=== PATIENT | female | born 1940 | race Caucasian/White ===

== ENCOUNTER 2020-05-05 22:37 | Emergency (ER) | payer OTHER ==
[~2020-05-05] VITALS: Ht 154.9 cm; Wt 68.9 kg
[~2020-05-05 22:37] MED LIST: ASPI-1153 PO; DILT120C89 PO; SIMV20TA2 PO
[2020-05-05 22:44] VITALS: BP_SYST 150
[2020-05-05 23:16] LABS: BILIRUBIN,URINE NEGATIVE (NEGATIVE); BLOOD, URINE 3+ (NEGATIVE); COLOR,URINE YELLOW (YELLOW); GLUCOSE,URINE NEGATIVE (NEGATIVE); KETONES,URINE NEGATIVE (NEGATIVE); LEUKOCYTE ESTERASE ,URINE 3+ (NEGATIVE); NITRITE, URINE NEGATIVE (NEGATIVE); PROTEIN URINE NEGATIVE (NEGATIVE); UROBILINOGEN,URINE 0.2 (0.2-1.0)
[2020-05-05 23:17] LABS: CLARITY/URINE CLOUDY (CLEAR)
[2020-05-05 23:26] LABS: BACTERIA,URINE MODERATE /HPF (None Seen); RBC,URINE 20-50 /HPF (0-3); WBC,URINE 20-50 /HPF (0-3)
[2020-05-06] MEDS ORDERED: CEPHALEXIN 500 MG CAPSULE PO ONE (00:30)
[2020-05-06] MEDS ORDERED: methylPREDNISolone SOD SUCC/PF 62.5 MG/ML VIAL IM ONE (00:30)
[2020-05-06 00:43] VITALS: BP_SYST 136
== END 2020-05-06 00:43 | disposition home or self-care (01) ==
LOC: SED 22:37
DX: T78.1XXA Other adverse food reactions, not elsewhere classified, initial encounter (principal); N39.0 Urinary tract infection, site not specified; I48.91 Unspecified atrial fibrillation; E07.9 Disorder of thyroid, unspecified; Z79.899 Other long term (current) drug therapy; Z79.82 Long term (current) use of aspirin; X58.XXXA Exposure to other specified factors, initial encounter
CPT/HCPCS: 81000; 87086; 96372; 99283; J2930

== ENCOUNTER 2020-10-27 11:32 | Emergency (ER) | payer OTHER ==
[~2020-10-27] VITALS: Ht 157.5 cm; Wt 68.0 kg
[~2020-10-27 11:32] MED LIST changes: -ASPI-1153 PO; +ASPI-1393 PO
[2020-10-27 11:46] VITALS: BP_SYST 143
[2020-10-27] MEDS ORDERED: OMEP-268 PO (12:00)
[2020-10-27] MEDS ORDERED: BACL10TA PO (12:00)
[2020-10-27] MEDS ORDERED: LEVO25TA2 PO (12:00)
[2020-10-27] MEDS ORDERED: TRIA1TAB96 PO (12:00)
[2020-10-27] MEDS ORDERED: ROSU20TA32 PO (12:00)
[2020-10-27 12:52] LABS: BASOPHILS # (AUTO) 0.1 K/uL (0.0-0.2); BASOPHILS % (AUTO) 0.8 % (0.0-2.0); EOSINOPHILS % (AUTO) 0.4 % (0.0-4.0); HEMATOCRIT 40.9 % (36-48); HEMOGLOBIN 14.1 g/dL (12.0-16.0); LYMPHOCYTES # (AUTO) 1.5 K/uL (1.0-5.5); LYMPHOCYTES % (AUTO) 18.9 % (20.5-51.5); MEAN CORPUSCULAR HEMOGLOBIN 32 pg (27-31); MEAN CORPUSCULAR HGB CONC 35 % (32-36); MEAN CORPUSCULAR VOLUME 94 fL (79.0-98.0); MONOCYTES # (AUTO) 0.4 K/uL (0.0-1.0); MONOCYTES % (AUTO) 5.2 % (1.7-9.3); NEUTROPHILS # (AUTO) 5.9 K/uL (1.8-7.7); NEUTROPHILS % (AUTO) 74.7 % (40.0-70.0); PLATELET COUNT (AUTO) 233 K/uL (130-430); RED BLOOD CELL COUNT(AUTO) 4.37 MIL/uL (4.2-6.2); RED CELL DISTRIBUTION WIDTH 13.2 % (9.0-15.0); WHITE BLOOD COUNT (AUTO) 7.9 K/uL (4.8-10.8)
[2020-10-27 12:58] LABS: ANION GAP 11 (5-15); CALCIUM 9.3 mg/dL (8.4-11.0); CHLORIDE 99 mmol/L (98-107); CREATININE 1.47 mg/dL (0.55-1.30); GLUCOSE 96 mg/dL (70-99); POTASSIUM 3.5 mmol/L (3.5-5.1); SODIUM SERUM 137 mmol/L (136-145); UREA NITROGEN, BLOOD 22 mg/dL (8-21)
[2020-10-27 13:04] LABS: ACETAMINOPHEN < 1 ug/mL (1-30); ALANINE AMINOTRANSFERASE 31 U/L (12-78); ALBUMIN 4.3 g/dL (3.4-4.8); ALCOHOL, BLOOD < 3 mg/dL (<10); ASPARTATE AMINOTRANSFERASE 31 U/L (10-37); TOTAL BILIRUBIN 1.1 mg/dL (0.0-1.0)
[2020-10-27 14:25] LABS: BILIRUBIN,URINE NEGATIVE (NEGATIVE); CLARITY/URINE CLEAR (CLEAR); COLOR,URINE YELLOW (YELLOW); GLUCOSE,URINE NEGATIVE (NEGATIVE); KETONES,URINE NEGATIVE (NEGATIVE); LEUKOCYTE ESTERASE ,URINE NEGATIVE (NEGATIVE); NITRITE, URINE NEGATIVE (NEGATIVE); PH,URINE 6.5 (5.0-8.0); PROTEIN URINE NEGATIVE (NEGATIVE); UROBILINOGEN,URINE 0.2 (0.2-1.0)
[2020-10-27 14:30] LABS: BLOOD, URINE TRACE (NEGATIVE)
[2020-10-27 14:48] LABS: BACTERIA,URINE RARE /HPF (None Seen); WBC,URINE 0-3 /HPF (0-3)
[2020-10-27 14:57] VITALS: BP_SYST 143
[2020-10-27 15:47] LABS: BARBITURATE, URINE NEGATIVE (NEG <=200); BENZODIAZEPINE, URINE NEGATIVE (NEG <=150); CANNABINOID, URINE NEGATIVE (NEG <=50); COCAINE, URINE NEGATIVE (NEG <=150); METHAMPHETAMINES SCREEN,URINE NEGATIVE (NEG <=500); PHENCYCLIDINE SCREEN,URINE NEGATIVE (NEG <=25); URINE AMPHETAMINE NEGATIVE (NEG <=500); URINE METHADONE NEGATIVE (NEG <=200)
[2020-10-27 15:48] LABS: OPIATE, URINE NEGATIVE (NEG <=100); UR TRICYCLIC ANTIDEPRESSANTS NEGATIVE (NEG <=300); URINE OXYCODONE SCREEN NEGATIVE (NEG <=100); URINE PROPOXYPHENE SCREEN NEGATIVE (NEG <=300)
== END 2020-10-27 14:58 | disposition home or self-care (01) ==
LOC: SED 11:32
DX: R41.82 Altered mental status, unspecified (principal); E03.9 Hypothyroidism, unspecified
CPT/HCPCS: 36415; 70450; 76376; 80053; 80307; 81000; 85025; 93005; 99285; G0480; G0481; G0482

== ENCOUNTER 2023-06-16 16:05 | Emergency (ER) | payer OTHER ==
[~2023-06-16] VITALS: Ht 154.9 cm; Wt 68.0 kg
[~2023-06-16 16:05] MED LIST changes: +BACL10TA PO; +LEVO25TA2 PO; +OMEP-268 PO; +ROSU20TA73 PO; +SIMV-343 PO; -SIMV20TA2 PO; +TRIA1TAB96 PO
[2023-06-16 16:10] VITALS: BP_SYST 174; PULSE 78; RESP 19; TEMP 98; O2SAT 98
[2023-06-16 17:34] LABS: BASOPHILS # (AUTO) 0.1 K/uL (0.0-0.2); BASOPHILS % (AUTO) 0.9 % (0.0-2.0); EOSINOPHILS # (AUTO) 0.1 K/uL (0.0-0.4); EOSINOPHILS % (AUTO) 0.7 % (0.0-4.0); HEMATOCRIT 39.7 % (36-48); HEMOGLOBIN 13.3 g/dL (12.0-16.0); MEAN CORPUSCULAR HEMOGLOBIN 32 pg (27-31); MEAN CORPUSCULAR HGB CONC 34 % (32-36); MEAN CORPUSCULAR VOLUME 96 fL (79.0-98.0); MONOCYTES # (AUTO) 0.4 K/uL (0.0-1.0); MONOCYTES % (AUTO) 5.4 % (1.7-9.3); NEUTROPHILS # (AUTO) 5.2 K/uL (1.8-7.7); PLATELET COUNT (AUTO) 270 K/uL (130-430); RED BLOOD CELL COUNT(AUTO) 4.14 MIL/uL (4.2-6.2); RED CELL DISTRIBUTION WIDTH 12.8 % (9.0-15.0); WHITE BLOOD COUNT (AUTO) 7.7 K/uL (4.8-10.8)
[2023-06-16 17:53] LABS: ALANINE AMINOTRANSFERASE 8 U/L (12-78); ALBUMIN 3.5 g/dL (3.4-4.8); ANION GAP 11 (5-15); ASPARTATE AMINOTRANSFERASE 27 U/L (10-37); CARBON DIOXIDE 29 mmol/L (23-29); CHLORIDE 100 mmol/L (98-107); CREATININE 1.27 mg/dL (0.55-1.30); GLUCOSE 95 mg/dL (74-106); LIPASE 81 U/L (73-393); SODIUM SERUM 140 mmol/L (136-145); TOTAL BILIRUBIN 0.9 mg/dL (0.0-1.0); UREA NITROGEN, BLOOD 11 mg/dL (8-21)
[2023-06-16 17:56] LABS: POTASSIUM 2.7 mmol/L (3.5-5.1)
[2023-06-16] MEDS ORDERED: POTASSIUM CHLORIDE 20 MEQ TAB.PRT.SR PO ONE (18:15)
[2023-06-16] MEDS ORDERED: POLY119P2 PO (18:41)
[2023-06-16 18:52] VITALS: BP_SYST 133; PULSE 71; RESP 19; TEMP 98; O2SAT 98
== END 2023-06-16 18:48 | disposition home or self-care (01) ==
LOC: SED 16:05
DX: K59.00 Constipation, unspecified (principal); E87.6 Hypokalemia; Z79.899 Other long term (current) drug therapy
CPT/HCPCS: 36415; 74018; 80053; 83690; 85025; 93005; 99285

== ENCOUNTER 2024-02-21 21:29 | Emergency (ER) | payer OTHER ==
[~2024-02-21] VITALS: Ht 154.9 cm; Wt 68.5 kg
[~2024-02-21 21:29] MED LIST changes: +POLY119P2 PO
[2024-02-21 22:06] VITALS: BP_SYST 145; PULSE 63; RESP 16; O2SAT 98
[2024-02-21 23:44] VITALS: BP_SYST 145; PULSE 63; RESP 16; TEMP 97.5; O2SAT 98
== END 2024-02-21 23:44 | disposition home or self-care (01) ==
LOC: SED 21:29
DX: H57.02 Anisocoria (principal); E78.5 Hyperlipidemia, unspecified
CPT/HCPCS: 70450-TC; 99284